=== PATIENT | female | born 1960 | race Asian ===

== ENCOUNTER 2024-11-25 10:45 | Emergency (ER) | payer OTHER ==
[~2024-11-25] VITALS: Ht 157.5 cm; Wt 68.1 kg
[~2024-11-25 10:45] MED LIST: HYDR-4527 PO; LORA0.5T20 PO
[2024-11-25 10:50] VITALS: BP 149/79; PULSE 90; RESP 16; TEMP 97.1; O2SAT 96
== END 2024-11-25 11:05 | disposition home or self-care (01) ==
LOC: EMS 10:45
DX: F41.0 Panic disorder [episodic paroxysmal anxiety] (principal); I10 Essential (primary) hypertension; Z88.1 Allergy status to other antibiotic agents; Z79.899 Other long term (current) drug therapy
CPT/HCPCS: 99281; Z7502